=== PATIENT | male | born 1985 | race Two or more races ===

== ENCOUNTER 2020-06-12 07:00 | Outpatient (RCR) | payer OTHER, SELFPAY | END 2020-07-11 07:33 | disposition other institution (70) | LOC: HO.PT 07:00 | PROVIDERS: Visit Provider Family Medicine | DX: M79.671 Pain in right foot (principal) | CPT/HCPCS: 97110; 97112; 97140; 97161; 97530 ==

== ENCOUNTER 2024-04-03 12:12 | Outpatient (REF) | payer OTHER, SELFPAY ==
--- NOTE | ~2024-04-03 | XR_ITS ---
EXAMINATION: XR LUMBOSACRAL SPINE CLINICAL INFORMATION: Acute right-sided low back pain with right-sided sciatic pain COMPARISON: None available. TECHNIQUE: Three views of the lumbosacral spine. FINDINGS: Vertebral bodies normally aligned normal height. Mild degenerative disc changes at L4-L5 interspace endplate osteophytes. Remaining disc levels are unremarkable. Facets are unremarkable. Partially visualized sacroiliac joints are normal. XR/XR lumbar spine 2-3V IMPRESSION: 1. Mild spondylosis of the lumbar spine. 2. No acute abnormality. Electronically signed by: Brock Owens MD 04/03/2024 01:57 PM EDT
== END 2024-04-03 12:13 | disposition home or self-care (01) ==
LOC: HO.XRAY 12:12
PROVIDERS: PCP Family Medicine; Visit Provider Family Medicine
DX: M54.41 Lumbago with sciatica, right side (principal)
CPT/HCPCS: 72100

== ENCOUNTER 2024-04-14 12:34 | Outpatient (REF) | payer OTHER, SELFPAY ==
[2024-04-14 12:52] LABS: MANUAL DIFF FLAG NO
[2024-04-14 13:20] LABS: Basophils Percent Auto 0.4 % (0-2); Eosinophils Absolute Auto 0.3 X10*3/uL (0.0-0.4); Eosinophils Percent Auto 4.7 % (0-4); Hematocrit 47.8 % (42.0-52.0); Imm Gran Abs Auto 0.02 X10*3/uL (0.00-0.03); Imm Gran Pct Auto 0.3 % (0.0-0.4); Lymphocytes Percent Auto 29.5 % (20-40); Mean Corpuscular HGB Conc 33.5 g/dl (31.0-36.0); Mean Corpuscular Volume 86.6 fL (80.0-98.0); Mean Platelet Volume 9.4 fL (9.4-12.4); Monocytes Absolute Auto 0.6 X10*3/uL (0.1-1.2); Monocytes Percent Auto 8.8 % (2-11); Neutrophils Absolute Auto 3.9 x10*3/uL (2.0-8.3); Neutrophils Percent Auto 56.3 % (45-73); Platelet Count 302 X10*3/uL (160-400); Red Blood Count 5.52 X10*6/uL (4.60-5.80); Red Cell Distribution Width 13.6 % (11.0-16.0); White Blood Count 6.9 X10*3/uL (4.8-10.8)
[2024-04-14 13:38] LABS: Alanine Aminotransferase 34 U/L (0-40); Albumin Level 4.4 g/dL (3.5-5.0); Alkaline Phosphatase 69 U/L (39-117); Anion Gap 10 (12-20); Aspartate Amino Transferase 31 U/L (5-37); Bilirubin Total 0.6 mg/dL (0.0-1.0); Blood Urea Nitrogen 12 mg/dL (9-16); Calcium 9.4 mg/dL (8.4-10.2); Carbon Dioxide 30 mmol/L (22-29); Chloride 103 mmol/L (96-108); Cholesterol 180 mg/dL (<200); Estimated Glomerular Filt Rate > 60; Glucose Random 107 mg/dL (60-115); HDL Cholesterol 38 mg/dL (>40); LDL Cholesterol Calculated 125 mg/dL (<100); Potassium 4.3 mmol/L (3.3-5.1); Sodium 139 mmol/L (135-145); Total Protein 8.2 g/dL (6.5-8.0); Triglycerides 88 mg/dL (<150)
[2024-04-15 04:40] LABS: HIV AB/AG Nonreactive (Nonreactive); HIV Num 1 0.05 S/CO (0.00-0.99); ~HepC Num1 0.17 S/CO (0.00-0.79); ~Hepatitis C Antibody Nonreactive (Nonreactive)
== END 2024-04-14 12:35 | disposition home or self-care (01) ==
LOC: HO.LAB 12:34
PROVIDERS: PCP Family Medicine; Visit Provider Family Medicine
DX: Z11.59 Encounter for screening for other viral diseases (principal); Z11.4 Encounter for screening for human immunodeficiency virus [HIV]
CPT/HCPCS: 36415; 80053; 80061; 85025; 86803; 87389

== ENCOUNTER 2024-08-24 08:02 | Outpatient (RCR) | payer OTHER, SELFPAY | END 2024-08-24 10:55 | disposition home or self-care (01) | LOC: HO.PT 08:02 | PROVIDERS: PCP Family Medicine; Visit Provider Family Medicine | DX: M54.41 Lumbago with sciatica, right side (principal) | CPT/HCPCS: 97110; 97112; 97140; 97161 ==

== ENCOUNTER 2025-03-31 12:36 | Emergency (ER) | payer OTHER, SELFPAY ==
--- NOTE | 2025-03-31 12:44 | ECG_ITS ---
Test Reason : CHEST PAIN Blood Pressure : */* mmHG Vent. Rate : 72 BPM Atrial Rate : 72 BPM P-R Int : 146 ms QRS Dur : 84 ms QT Int : 366 ms P-R-T Axes : 33 53 52 degrees QTcB Int : 400 ms Normal sinus rhythm Normal ECG No previous ECGs available Referred By: Generic ED Physician Electronically Signed By: NANCY SEPULVEDA MD
[2025-03-31 12:51] VITALS: BP 147/82; PULSE 73; RESP 18; TEMP 36.9; O2SAT 97; BMI 37.1
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
[2025-03-31 13:06] LABS: MANUAL DIFF FLAG NO
[2025-03-31 13:08] LABS: Hematocrit 46.3 % (42.0-52.0); Hemoglobin 15.9 g/dl (14.0-18.0); Imm Gran Abs Auto 0.02 X10*3/uL (0.00-0.03); Imm Gran Pct Auto 0.2 % (0.0-0.4); Lymphocytes Absolute Auto 1.9 X10*3/uL (1.2-4.9); Mean Corpuscular HGB Conc 34.3 g/dl (31.0-36.0); Mean Corpuscular Hemoglobin 29.1 pg (27.0-33.0); Mean Corpuscular Volume 84.6 fL (80.0-98.0); NRBC Abs Auto 0.000 X10*3/uL (0.0-0.012); NRBC Pct Auto 0.0 /100WBC (0.0-0.2); Platelet Count 283 X10*3/uL (160-400); Red Blood Count 5.47 X10*6/uL (4.60-5.80); White Blood Count 9.3 X10*3/uL (4.8-10.8)
[2025-03-31 13:15] LABS: INTERNATIONAL NORM RATIO 1.1 (0.9-1.1); Prothrombin Time 12.5 SEC (10.9-12.4)
[2025-03-31 13:28] LABS: Alanine Aminotransferase 27 U/L (0-40); Albumin Level 4.5 g/dL (3.5-5.0); Alkaline Phosphatase 75 U/L (39-117); Anion Gap 14 (12-20); Aspartate Amino Transferase 30 U/L (5-37); Blood Urea Nitrogen 16 mg/dL (9-16); Calcium 9.0 mg/dL (8.4-10.2); Carbon Dioxide 24 mmol/L (22-29); Chloride 108 mmol/L (96-108); Creatinine Clr Calc Pharmacy 146.4; Estimated Glomerular Filt Rate > 60; Magnesium 1.8 mg/dL (1.6-2.6); Potassium 4.2 mmol/L (3.3-5.1); Sodium 142 mmol/L (135-145); Total Protein 7.5 g/dL (6.5-8.0)
[2025-03-31 13:30] LABS: Troponin-I High Sensitivity < 2.7 ng/L (<3.5-35.0)
--- OUTSIDE RECORDS SUMMARY | 2025-03-31 14:47 | XMS_ITS | Encounter Summary ---
Author Organization [facility] Address [address] [facility] [address] [place] [phone] Phone Care Team Providers Care Sales Analyst Name Role Phone Felipe Agrawal DO Unavailable Felipe Agrawal DO Primary Care Provider [phone] Reason for Visit * Reason Onset Date Comments Triage 03/29/2025 Red + irregular heart rate + 9/10 Encounter Details Date Type Department Care Team (Late st Contact Info) Description 03/29/2025 Nurse Triage [facility] [address] [place] [address] Felipe Agrawal, [address] [facility] [address] [place], [place] [id number] [email or web address] Triage (Red + irregular heart rate + 10) Social History Tobacco Use Types Packs/Day Years Used Date Smoking Tobacco: Never Smokeless Tobacco: Never Alcohol Use Standard Drinks/Week Comments Yes 0 (1 standard drink = 0.6 oz pur e alcohol) seldom Child or Family Care Answer Date Record ed Do you have problems with on e of the following making it difficult for you to work, study, or receive health care? No 04/20/2024 Education Answer Date Recorded Are you interested in help w ith more adult education (for example, completing high school, GED, job training, learning the [place] language, technical skills, or developing parenting skills)? No 04/20/2024 Are you concerned about learning? Not on file 04/20/2024 No 04/20/2024 Yes 04/20/2024 Food Answer Date Recorded Within the past 6 months we worried whether our food would run out before we got money to buy more. Never True 04/20/2024 Within the past 6 months the food we bought just didn't last and we didn't have enough money to get more. Never True Residential Stability Answer Date Recor ded What is your housing situation today? I have shan owusu 04/20/2024 How many times have you move d in the past 12 months? Zero (I did not move) 04/20/2024 Paying for Meds Answer Date Recorded Do you have trouble paying for medicines? No 04/20/2024 Paying Utility Bills Answer Date Record ed Do you have trouble paying your heating or elect ricity bill? No 04/20/2024 Transportation Answer Date Recorded Has the lack of transportati on kept you from medical appointments or from getting medications? No 04/20/2024 Unemployment Answer Date Recorded Are you currently unemployed or working on a part-time or temporary basis, and looking for work? No 04/20/2024 Digital Access Answer Date Recorded No 04/20/2024 Yes 04/20/2024 Do you have reliable internet access at home? Ye s 04/20/2024 Do you have a device (e.g., phone, tablet, computer) with a working camera? Yes 04/20/2024 Intimate Partner Violence Answer Date R ecorded Denied Basic Needs Not on file 04/20/2024 In the past 12 months have y ou been in a relationship with a person who hurts, threatens, or tries to control you? No 04/20/2024 Worried food would run out Not on file 04/20 In the past 12 months have y ou been in a relationship with a person who hurts, threatens, or tries to control you? 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 States he is not able to come to the office tomorrow for 12:15PM for appointment. Advised patient that he should be seen in an ED then to have an evaluation as soon as possible. Patient verbalized understanding and quickly ended the call. * Felipe Agrawal DO - 03/29/2025 3:36 PM EDT My question is-are they looking for me to sign an EKG order and for me then to interpret the result? Are they still going to come into the appointment tomorrow at 1215 for an evaluation? The best course of action would be to come in to the appointment tomorrow and for me to evaluate the patient. I can obtain an EKG if needed at that time. I may want to get a Holter monitor-this can go in many diff erent directions. The pick and choose medicine that is very prevalent today is not the best for good patient care. If they would rather go to [facility] for an evaluation then this is okay with me. Thank you * Shaista Renee RN - 03/29/2025 2:55 PM EDT Spoke with patient. Advised of 's advice. Agreeable to OV tomorrow at 12:15PM but is requesting EKG to be done at [facility] instead of in office for insurance reasons. Advised I will ask and let him know. Patient verbalized understanding. * Felipe Agrawal DO - 03/29/2025 2:38 PM EDT Please have the patient make an appointment with me tomorrow at 12:15-double book. I will get an EKG at that time and we will discuss. Thank you. * Chris Villa RN - 03/29/2025 2:07 PM EDT Pt states that she listen to pts heart and it sounds like extra beat. suspects [employer], no hx cardiacissues or anxiety, thinks anxiety may be playing a role, issue began after watching news from yesterday. no other symptoms. no chest pain or pressue, no sob. BP was slightly elevated 140's. Advised this would require an in office visit, ?'s if EKG can be ordered externally. To pcp Reason for Disposition Skipped or extra beat(s) and occurs 4 or more times per minute Protocols used: Heart Rate and Heartbeat Iuswhtjyc-Thwda-NP Nurse Triage Encounter Note Reason for Triage Ayan Gonzalez contacted office for Triage Red + irregular heart rate + 03/28 Call Disposition See Today In Office Disposition Comments: Patient/caregiver understands and will follow disposition: Initial Symptom Screening and Assessment IA Symptom Onset 1-2 days Symptom Severity Mild - does not interfere with normal activities Symptom Pattern Constant/continuous Aggravating factors or triggers Other (comment) Home Treatments Rest Did the home treatments work? No Other related symptoms Pt states that she listen to pts heart and it sounds like extra beat. suspects [employer], no hx cardiac issues or anxiety, thinks anxiety may be playing a role, issue began after watching news from yesterday. no other symptoms. Breathing or Chest Symptoms (Resp/Cardiac) Other breathing or chest symptoms? no chest pain or pressue, no sob. BP was slightly elevated 140's Care Advice Patient/Caregiver understands and will follow care advice?: Yes, with modifications Heart Rate and Heartbeat [id number]-TY Chris Villa RN [facility] Mar 29, 2025 02:10 PM Disposition and First Aid SEE IN OFFICE OR VIDEO VISIT TODAY: * You need to be examined today or have a video telemedicine visit. * PCP OFFICE VISIT: Let me give you an appointment. * TRIAGER OPTION - MAKE VIDEO VISIT APPOINTMENT: I am going to set up a video telemedicine visit for you. * IF NO AVAILABLE OFFICE OR VIDEO APPOINTMENTS: You need to be seen in an Urgent Care Center. [facility] at [facility] Go there today. A nearby Urgent Care Center is often a good source of care. Anotherchoice janae to go to the Emergency Department. AVOID CAFFEINE: * Avoid drinking beverages that contain caffeine. Reason: Caffeine is a stimulant and can make palpitations worse. * Examples include coffee, tea, [place], Mountain Dew, Red Bull, and some 'energy drinks.' HEALTHY LIVING TIPS FOR PEOPLE WITH PALPITATIONS: * Diet: Eat a balanced healthy diet. * Diet pills: Avoid diet pills. Reason: They act like stimulants. * Exercise: Regular exercise will improve your overall health, improve your mood, and is a simple method to reduce stress. * Liquid Intake: Drink adequate liquids, 6 to 8 glasses of water daily. * Sleep: Try to get enough sleep. Lack of sleep can make palpitations worse. Most people need 7 to 8 hours of sleep each night. * Smoking: Stop or reduce your smoking. LIMIT ALCOHOL: * Limit your alcohol consumption to no more than 2 drinks a day. * Ideally, stop drinking alcohol for the next two weeks. CALL BACK IF: * Chest pain, lightheadedness or difficulty breathing occurs * Heart beating over 140 beats / minute * More than 3 extra or skipped beats / minute * You become worse Patient will call back with additional questions or if symptoms change or worsen Chris Villa RN Reason for Disposition and Assessment * Edna Burnett - 03/29/2025 1:51 PM EDT [facility] Smart Phrases: Red Yellow Green Guidelines Select Red, Yellow, Green Triage Intake *Route to appropriate staff member/pool according to practice guidelines* Red Call Intake Call Back Number: (if not patient, name/relationship and if patient is with caller) Red Symptom(s): Irregular heart rate When did these symptoms start? 03/28 Have you ever experienced these symptoms before? NO Additional information: Pt called in stating he believes he has been experiencing anxiety attacks and has had irregular/racing heart rate since 03/28 (Call was transferred to n/a) Transfer LIVE call to RN for prompt triage Reason for Call = TRIAGE Comment = RED + symptom Route TE directly to the RN receiving the warm transfer, NOT the nursing pool documented in this encounter Plan of Treatment Upcoming Encounters Date Type Department Care Team (Late st Contact Info) Description 04/23/2025 8:00 AM EDT Office Visit [facility] [address] [facility] [place] [address] Felipe Agrawal DO [address] [facility] [address] [place] [address] [email or web address] documented as of this encounter Visit Diagnoses Diagnosis Irregular heart beat- Primary Unspecified cardiac dysrhythmia documented in this encounter Additional Health Concerns Assessment Noted Time PHQ-2 Depression Total Score: 0 04/20/20 24 8:03 AM EDT documented as of this encounter Care Teams Sales Analyst Relationship Specialty Start Date End Date Felipe Agrawal DO [address] [facility] [address] [place] [address] [email or web address] PCP - General 07/22/17 Felipe Agrawal DO [address] [facility] [address] [place] [address] [email or web address] Historical LMR Provider 05/08/17 documented as of this encounter Additional Source Comments The information contained in this document represents components of the legal health record. It is not the complete legal health record.[facility]
--- OUTSIDE RECORDS SUMMARY | 2025-03-31 14:47 | XMS_ITS | Clinical Summary ---
Author Organization [facility] Address [facility] [employer] [facility] [address] [place] [address] Phone Care Team Providers Care Hospital Receiving Clerk Name Role Phone Felipe Agrawal DO Unavailable Felipe Agrawal DO Primary Care Provider [phone] Allergies No known active allergies Medications budesonide-formot deja 160-4.5 mcg/actuation inhalerIndication s:Moderate persistent asthma with acute exacerbation Inhale 2 puffs into the lungs 2 (two) times a day. 10.2 g 2 09/16/2023 Active albuterol 90 mcg/actuation inhalerIndication s:Asthma INHALE 2 PUFFS INTO THE LUNGS EVERY 4 HOURS NEEDED 8.5 g 3 09/06/2024 Active Active Problems Problem Noted Date Diagnosed Date Acute right-sided low back pain with right-sided sciatica 03/23/2024 Assessment & Plan (06/23/2024 4:18 PM EST): Virtual Visit Attestation Modality: video Provider Location, state disclosed to patient: practice location Patient Location: home Patient State or Country: [place] continues to have low back pain. He also has upper back pains at times. I reviewed his lumbar x-ray showing some arthritis but no other major abnormalities. He has been doing his exercises which are somewhat helpful while he was doing them but the pains come back. I put a referral into physiatry for a consult-Dr. Mclain and I also put a referral into physical therapy. He requested physical therapy at [facility] as he has done this before and it worked well for him. I advised him to come back in the office in a month for follow-up and if his pains continue I will then order an MRI to further investigate. I informed him to call if his symptoms get worse or if there are any other issues or concerns. He understands and agrees. Assessment & Plan (04/20/2024 8:14 AM EDT): Stable, he is undergoing the exercise I gave at last visit. He will call if this gets worse. Assessment & Plan (03/23/2024 9:42 AM EDT): Ayan presents for right lower back pain. He hurt his back about 2 weeks ago. He notes that this has been a periodic issue for him in the past. I will have him go for an x-ray of the lumbar spine as he notes that he heard and felt a pop recently. I suspect that he has a sciatic nerve pain causing the majority issues here. I wrote for Flexeril-to be taken at night and prednisone-to be taken the mornings and guidance given regarding his medications. I informed that he can take Tylenol on top of the prednisone but not ibuprofen. I informed him to continue with the heat. I gave him exercises to start on. He declined a referral to physical therapy. I informed him to call if the symptoms are not improving or if they are getting worse. He understands and agrees with this plan of action. Mild intermittent asthma without complication Assessment & Plan (04/20/2024 8:22 AM EDT): Stable at present. He has his meds as needed. Seasonal allergies 11/22/2023 Need for hepatitis C screening test 09/16/2023 Assessment & Plan (09/16/2023 3:21 PM EST): Ayan is due for lab work- I will update him with the result. Screening for human immunodeficiency virus Assessment & Plan (09/16/2023 3:21 PM EST): Ayan is due for lab work- I will update him with the result. Screening for condition 09/16/2023 Assessment & Plan (09/16/2023 3:21 PM EST): Ayan is due for lab work- I will update him with the results. RAFAEL (obstructive sleep apnea) 04/27/2023 Sleep disturbance 11/27/2022 Assessment & Plan (11/27/2022 10:20 AM EDT): Ayan presents for issues with sleep. He snores at night and wakes up gasping. He does not wake up well rested and can nap easily throughout the day. I put a referral to sleep medicine at [facility] for consult regarding sleep study-concern for sleep apnea. He will call if there are any other issues or concerns. Varicose veins of leg with edema, right 11/28/19 Assessment & Plan (11/27/2022 10:20 AM EDT): Ayan presents with ongoing and worsening right lower leg varicose veins. He would like to see a vascular provider for this. I put the referral in today. He was appreciative. He will call if there are any other issues or concerns. Right foot pain 03/12/2020 Assessment & Plan (03/12/2020 5:24 PM EDT): A virtual visit was used during the COVID-[address] of an in-person visit. This real-time, interactive virtual clinical encounter was conducted using videoconferencing technology from clinic or home office. The patient participated in the visit from home/temporary residence or other location as specified below. Consent for virtual care, including informing the patient that insurance will be billed, and that in-person care is available in case of emergencies or as needed otherwise, was discussed at the time of scheduling. Pt participated in visit from work. Ayan has been having right foot pain-lateral aspect for about 5 weeks now. He notes that he injured this during boxing. There is still pain at the site with certain movements. I want to get an x-ray to rule out a fracture. He will go for the x- ray and I will update him with the results. I advised him symptomatic management for the time being and he will call if this gets worse or changes. He understands and agrees with this plan. Routine medical exam 06/08/2019 Assessment & Plan (04/20/2024 8:26 AM EDT): Ayan Gonzalez is a 38 y.o. year old male presenting for his annual physical exam. I reviewed the adult health update-electronic questionnaire. I reviewed his most recent lab work-guidance given to improve his diet and exercise regimen. he will follow up in a year for their annual physical exam. he understands and agrees. Assessment & Plan (06/08/2019 4:11 PM EST): Ayan Gonzalez is a 33 y.o. year old male presenting for his annual physical exam. I reviewed the adult health update form today. he will go for his above lab work and I will update him with the results. I improved him to improve his diet and exercise regimen. he will follow up in a year for their annual physical exam. he understand and agrees. Obesity (BMI 35.0-39.9 without comorbidity) 05/20 Assessment & Plan (04/20/2024 8:26 AM EDT): Ayan has a BMI of 38.9-guidance given to improve lifestyle-diet and exercise as well as implement stretching. Follow-up as needed. He understands and agrees. Assessment & Plan (11/27/2022 10:20 AM EDT): Ayan has a BMI of 38 and I gave guidance regarding dietary and exercise modification. Assessment & Plan (06/08/2019 4:10 PM EST): I advised him to improve his diet and exercise regimen. Resolved Problems Problem Noted Date Diagnosed Date Resolved Date Asthma 03/29/2019 11/22/2023 Assessment & Plan (09/16/2023 3:23 PM EST): Ayan presents for an asthma exacerbation and I treated him with a steroid-based inhaler to be used as directed and guidance given to rinse his mouth out with a salt water rinse after each use to prevent thrush. He will call if this gets worse or if there are any other issues or concerns at which point I would image study with a chest x-ray. I also refilled his albuterol inhaler today-to be used as needed. He was appreciative. Assessment & Plan (06/08/2019 4:18 PM EST): Stable. I refilled his albuterol inhaler today. He will call if there is any issues with this. Assessment & Plan (03/29/2019 4:49 PM EDT): Ayan has asthma and I refilled his albuterol inhaler today. He will use this as needed. He will call if there is any other issues. Encounters Date Type Department Care Team Description 03/29/2025 Nurse Triage [facility] [address] [place] [address] Felipe Agrawal, DO Triage (Red + irregular heart rate + 9/10) from Last 3 Months Immunizations Immunization Administration Dates Next Due INFLUENZA, SPLIT VIRUS, TRIVALENT W/ PRESERVATIV E IM 05/07/2016 Influenza Quadrivalent Preservative Free IM 04/19,05/24/2019 Pneumococcal polysaccharide PPSV23 06/08/2019 Tdap 02/26/2015 Family History Medical History Relation Comments Hyperlipidemia Father Allergies Mother Asthma Mother Relation Status Comments Father Alive Mother Alive Social History Tobacco Use Types Packs/Day Years Used Date Smoking Tobacco: Never Smokeless Tobacco: Never Tobacco Cessation:Counseling Given: Not Answered Alcohol Use Standard Drinks/Week Comments Yes 0 [...] high school, GED, job training, learning the Korean language, technical skills, or developing parenting skills)? [...] your housing situation today? 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 on file Not on fi le Last Filed Vital Signs Vital Sign Reading Time Taken Comments Blood Pressure 126/70 04/20/2024 8:05 AM EDT Pulse 70 04/20/2024 8:05 AM EDT Temperature 36.3 C (97.4 F) 04/20/2024 8:05 AM EDT Respiratory Rate 18 11/22/2023 6:52 PM EDT Oxygen Saturation 97% 04/20/2024 8:05 AM EDT Inhaled Oxygen Concentration - - Weight 130.2 kg (287 lb) 04/20/2024 8:05 AM EDT Height 182.9 cm (6') 04/20/2024 8:05 AM EDT Body Mass Index 38.92 04/20/2024 8:05 AM EDT Plan of Treatment Upcoming Encounters Date Type Department Care Team (Late st Contact Info) Description 04/23/2025 8:00 AM EDT Office Visit [facility] [address] [place] [address] Felipe Agrawal DO [address] [facility], [address] [place], [place] [id number] [email or web address] Health Maintenance Due Date Last Done Comments INFLUENZA VACCINE (#1) 2025 , 05/24/2019, 05/07/2016 Adult Td,Tdap Booster 02/26/2025 02/26/2015 COVID-19 VACCINE (2 - 2024- season) 2025 06/20/2021 DEPRESSION SCREENING 04/20/2025 04/20/2024 PNEUMOCOCCAL VACCINES (0-49 years) (2 of 2 - PCV) 05/03/2025 06/08/2019 Postponed from 06/08/2020 (Patient Declines / Guardian Declines) SCREENING FOR DIABETES 04/14/2027 04/14/2024 LIPID PANEL 04/14/2029 04/14/2024, 03/20, 04/14/2024, Additional history exists HEPATITIS C SCREENING Completed 04/14/2024 HIV ONE-TIME SCREENING (18-65 YEARS) Completed 04/14/2024 SMOKING STATUS SCREENING (Once After 26 Yrs) Completed 04/20/2024 HEPATITIS A VACCINES Aged Out No long er eligible based on patient's age to complete this topic HIB VACCINES Aged Out No longer eligi ble based on patient's age to complete this topic MENINGOCOCCAL VACCINES (ACWY) Aged Out No longer eligible based on patient's age to complete this topic MENINGOCOCCAL VACCINES (B) Aged Out N o longer eligible based on patient's age to complete this topic Medical Devices Not on file Procedures Procedure Name Priority Date/Time Associated Diagnosis Comments HEPATITIS C ANTIBODY, QUALITATIVE Routine 04/14/2024 2:31 PM EDT Need for hepatitis C screening test OUTSIDE HDL Routine 04/14/2024 OUTSIDE GLUCOSE FASTING Routine 04/14/2024 OUTSIDE HIV Routine 04/14/2024 from Last 3 Months or Most Recently Relevant to Health Maintenance Results * Hepatitis C antibody, qualitative (04/14/2024 2:31 PM EDT) Blood Result [facility] Felipe Agrawal DO LAB BLOOD ORDERABLES Final Resul t Performing Organization Address City/State/[facility] Co de Phone Number [facility] [address] [place], [place] [phone] * (ABNORMAL) Outside Glucose,Fasting (04/14/2024) Glucose, fasting - External 107(A) 65 - 99 mg/dL Result [facility] Historical Provider MD LAB BLOOD ORDERABLES Avelina l Result * OUTSIDE HIV TEST (04/14/2024) HIV - External Neg Result [facility] Historical Provider MD LAB BLOOD ORDERABLES Avelina l Result * (ABNORMAL) Outside HDL (04/14/2024) HDL - External 38(A) 40 - 80 mg/dL Result [facility] Historical Provider MD LAB BLOOD ORDERABLES Avelina l Result from Last 3 Months or Most Recently Relevant to Health Maintenance Insurance [facility] [address] [place] [address] [place] [address] [place] [address] [place] [address] [place] [address] [place] [address] [place] [address] [place] [address] POS Care Teams Hospital Receiving Clerk Relationship Specialty Start Date End Date Felipe Agrawal DO [address] [facility] [address] [place] [address] [email or web address] PCP - General 07/22/17 Felipe Agrawal DO [address] [facility] [address] [place] [address] [email or web address] Historical LMR Provider 05/08/17 Additional Source Comments The information contained in this document represents components of the legal health record. It is not the complete legal health record.[facility]
--- OUTSIDE RECORDS SUMMARY | 2025-03-31 14:47 | XMS_ITS | Encounter Summary ---
Author Organization [facility] Address [facility] [email or web address] [facility] [address] [place] [phone] Phone Care Team Providers Care Valet Service Attendant Name Role Phone Felipe Agrawal DO Unavailable Christine Bacon DO Unavailable [phone] Felipe Agrawal DO Primary Care Provider [phone] Encounter Details Date Type Department Care Team (Late st Contact Info) Description 03/14/2020 Procedure Pass [facility], [address] [address] Social History Tobacco Use Types Packs/Day Years Used Date Smoking Tobacco: Never Smokeless Tobacco: Never Alcohol Use Standard Drinks/Week Comments Yes 0 (1 standard drink = 0.6 oz pur e alcohol) seldom Sex and Gender Information Value Date Recorded Sex Assigned at Not on file Legal Sex Male 9:09 PM EDT Gender Identity Male 06/23/2024 3:51 PM EST Sexual Orientation Not on file 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 Not on file Not on fi le documented as of this encounter Last Filed Vital Signs Vital Sign Reading Time Taken Comments Blood Pressure - - Pulse - - Temperature - - Respiratory Rate - - Oxygen Saturation - - Inhaled Oxygen Concentration - - Weight 121.6 kg (268 lb) 03/15/2020 2:37 PM EDT Height 182.9 cm (6') 03/15/2020 2:37 PM EDT Body Mass Index 36.35 03/15/2020 2:37 PM EDT documented in this encounter Plan of Treatment Upcoming Encounters Date Type Department Care Team (Late st Contact Info) Description 04/23/2025 8:00 AM EDT Office Visit [facility] [address] [place] [address] Felipe Agrawal DO [address] [address] [email or web address] documented as of this encounter Visit Diagnoses Not on filedocumented in this encounter Additional Health Concerns Infection Onset Date Last Indicated Resolved Time CoV-Risk 05/17/2021 05/17/2021 05/27/2021 1:23 AM EST CoV-Exposed Comment:Recent close contact documented in the COVID-19 PCR/PRO order 07/12/2021 07/14/2021 07/27/2021 1:[address] CoV-Risk Comment:Per Ambulatory Triage Form 07/14/2021 07/17/202107/27 1:22 AM EST Assessment Noted Time PHQ-2 Depression Total Score: 0 06/08/20 19 4:04 PM EST documented as of this encounter Care Teams Valet Service Attendant Relationship Specialty Start Date End Date Felipe Agrawal DO [address] [address] PCP - General 07/22/17 Felipe Agrawal DO [address] [address] Historical LMR Provider 05/08/17 Christine Bacon DO [address] [address] [email or web address] Historical LMR Provider 05/08/17 07/26/21 documented as of this encounter Additional Source Comments The information contained in this document represents components of the legal health record. It is not the complete legal health record.[facility]
[2025-03-31 14:50] VITALS: BP 130/84; PULSE 75; RESP 16; O2SAT 98
[2025-03-31 16:19] VITALS: BP 136/85; PULSE 76; RESP 18; O2SAT 98
[2025-03-31 19:04] VITALS: BP 136/85; PULSE 76; RESP 18; TEMP 37.1; O2SAT 98
== END 2025-03-31 19:04 | disposition home or self-care (01) ==
PROVIDERS: Physician Assistant Medical; Emergency Provider Emergency Medicine; PCP Family Medicine
DX: R00.2 Palpitations (principal); F41.9 Anxiety disorder, unspecified
CPT/HCPCS: 36415; 80053; 83735; 84443; 84484; 85025; 85610; 93005; 99284

== ENCOUNTER → 2025-03-31 12:44 | Outpatient (BNV) | payer OTHER, SELFPAY | PROVIDERS: Emergency Provider Emergency Medicine; PCP Family Medicine; Visit Provider Internal Medicine Cardiovascular Disease | DX: R07.9 Chest pain, unspecified (principal) | CPT/HCPCS: 93010 ==